=== PATIENT | female | born 1990 | race Caucasian/White ===

== ENCOUNTER 2018-03-10 14:19 | Emergency (ER) | payer OTHER ==
[2018-03-10] MEDS: IBUPROFEN 600 MG TAB PO (15:04)
[2018-03-10 15:13] LABS: ADD MAN DIFF? NO
[2018-03-10 15:15] LABS: WHITE BLOOD COUNT 7.2 10^3/ul (4.8-10.8)
[2018-03-10 15:15] LABS: BASOPHILS % 0.6 % (0.0-2.0); EOSINOPHILS # 0.1 10^3/ul (0.0-0.5); EOSINOPHILS % 1.9 % (0.0-7.0); HEMATOCRIT 38.5 % (37.0-47.0); HEMOGLOBIN 12.5 g/dl (12.0-16.0); LYMPHOCYTES # 2.2 10^3/ul (0.8-2.9); MEAN CORPUSCULAR HEMOGLOBIN 27.7 pg (29.0-33.0); MEAN CORPUSCULAR HGB CONC 32.5 g/dl (32.0-37.0); MEAN CORPUSCULAR VOLUME 85.4 fl (82.0-101.0); MEAN PLATELET VOLUME 9.7 fl (7.4-10.4); MONOCYTE # 0.5 10^3/ul (0.3-0.9); MONOCYTES % 6.7 % (0.0-11.0); NEUTROPHIL # 4.3 10^3/ul (1.6-7.5); NEUTROPHILS % 59.5 % (39.0-77.0); PLATELET COUNT 227 10^3/UL (140-415); RED BLOOD COUNT 4.51 10^6/ul (4.20-5.40); RED CELL DISTRIBUTION WIDTH 13.3 % (11.5-14.5)
[2018-03-10 15:41] LABS: ALANINE AMINOTRANSFERASE 20 IU/L (13-69); ALBUMIN 4.2 g/dl (3.3-4.9); ALBUMIN/GLOBULIN RATIO 1.44; ALKALINE PHOSPHATASE 77 IU/L (42-121); ANION GAP 14 (8-16); ASPARTATE AMINO TRANSFERASE 18 IU/L (15-46); BILIRUBIN,INDIRECT 0.3 mg/dl (0-1.1); BILIRUBIN,TOTAL 0.3 mg/dl (0.2-1.3); BLOOD UREA NITROGEN 11 mg/dl (7-20); CALCIUM 9.2 mg/dl (8.4-10.2); CARBON DIOXIDE 28 mmol/L (21-31); CHLORIDE 107 mmol/L (97-110); CREATININE 0.61 mg/dl (0.44-1.00); GLUCOSE 88 mg/dl (70-220); POTASSIUM 3.7 mmol/L (3.5-5.1); SODIUM 145 mmol/L (135-144); TOTAL PROTEIN 7.1 g/dl (6.1-8.1)
[2018-03-10 15:58] LABS: FREE THYROXINE INDEX (Calc) 3.47 ug/ml (0.65-3.89); T3 UPTAKE 33.4 % (23.5-40.5); T4 (THYROXINE) 10.4 ug/dl (5.5-11.0)
== END 2018-03-10 17:26 | disposition home or self-care (01) ==
LOC: FTE 14:19
DX: J02.9 Acute pharyngitis, unspecified (principal); E03.9 Hypothyroidism, unspecified; M54.2 Cervicalgia
CPT/HCPCS: 36415; 76536; 80053; 84436; 84443; 84479; 85025; 93005; 99285-25

== ENCOUNTER 2018-04-07 20:39 | Emergency (ER) | payer OTHER ==
[2018-04-07] MEDS: FAMOTIDINE 20 MG TAB PO (23:10)
== END 2018-04-07 23:39 | disposition home or self-care (01) ==
LOC: FTE 20:39
DX: O99.611 Diseases of the digestive system complicating pregnancy, first trimester (principal); K21.9 Gastro-esophageal reflux disease without esophagitis; R07.9 Chest pain, unspecified; O99.281 Endocrine, nutritional and metabolic diseases complicating pregnancy, first trimester; E03.9 Hypothyroidism, unspecified; Z3A.01 Less than 8 weeks gestation of pregnancy
CPT/HCPCS: 93005; 99283-25

== ENCOUNTER 2018-11-03 15:53 | Inpatient (IN) | payer OTHER ==
[2018-11-03 16:55] LABS: ALANINE AMINOTRANSFERASE 20 IU/L (13-69); ALBUMIN 3.4 g/dl (3.3-4.9); ALBUMIN/GLOBULIN RATIO 1.13; ALKALINE PHOSPHATASE 152 IU/L (42-121); ANION GAP 9 (5-13); ASPARTATE AMINO TRANSFERASE 23 IU/L (15-46); BILIRUBIN,INDIRECT 0.2 mg/dl (0-1.1); BILIRUBIN,TOTAL 0.2 mg/dl (0.2-1.3); BLOOD UREA NITROGEN 7 mg/dl (7-20); CARBON DIOXIDE 22 mmol/L (21-31); CHLORIDE 103 mmol/L (97-110); CREATININE 0.54 mg/dl (0.44-1.00); Estimated GFR > 60 mL/min (>60); GLUCOSE 118 mg/dl (70-220); POTASSIUM 3.7 mmol/L (3.5-5.1); SODIUM 134 mmol/L (135-144); TOTAL PROTEIN 6.4 g/dl (6.1-8.1)
[2018-11-03] MEDS ORDERED: TERBUTALINE 1 ML (17:46)
[2018-11-03] MEDS: TERBUTALINE 1 MG/ML INJ SC ×2 (17:55→20:57)
[2018-11-03] MEDS: LACTATED RINGER'S 1,000 ML IV ×3 (17:55→22:56)
[2018-11-03] MEDS: BETAMET NA PHOS/AC(6 MG/ML) 2 ML INJ SYG IM (18:42)
[2018-11-03 21:33] LABS: ADD UMIC YES; UR AMORPHOUS CRYSTAL FEW /HPF (NONE SEEN); UR ASCORBIC ACID NEGATIVE (NEGATIVE); UR BACTERIA MANY /HPF (NONE SEEN); UR BILIRUBIN (Dip) NEGATIVE (NEGATIVE); UR BLOOD (Dip) NEGATIVE (NEGATIVE); UR CLARITY CLOUDY (CLEAR); UR COLOR YELLOW (YELLOW); UR GLUCOSE (Dip) NEGATIVE (NEGATIVE); UR KETONES (Dip) NEGATIVE (NEGATIVE); UR LEUKOCYTE ESTERASE (Dip) 3+ Leu/ul (NEGATIVE); UR NITRITE (Dip) NEGATIVE (NEGATIVE); UR RBC 2 /HPF (0-5); UR SQUAMOUS EPITHELIAL CELL MODERATE /HPF (FEW); UR TOTAL PROTEIN (Dip) NEGATIVE (NEGATIVE); UR UROBILINOGEN (Dip) NEGATIVE (NEGATIVE); UR WBC 14 /HPF (0-5)
[2018-11-03] MEDS ORDERED: LACTATED RINGER'S 1,000 ML IV (22:27)
[2018-11-03] MEDS ORDERED: METHYLERGONOVINE 0.2 MG INJ IM (22:30)
[2018-11-03] MEDS ORDERED: BUTORPHANOL 2 MG INJ IV (22:30)
[2018-11-03] MEDS ORDERED: MISOPROSTOL 200 MCG TAB PR (22:30)
[2018-11-03] MEDS ORDERED: CARBOPROST 250 MCG INJ IM (22:30)
[2018-11-03] MEDS ORDERED: OXYTOCIN 30 UNITS/LR 500 ML IV ×3 (22:30)
[2018-11-03] MEDS ORDERED: IBUPROFEN 600 MG TAB PO (22:30)
[2018-11-03] MEDS ORDERED: LIDOCAINE 1% (MPF) 30 ML INJ INJ (22:30)
[2018-11-03] MEDS: NIFEdipine 10 MG CAP PO (23:59)
[2018-11-04 01:02] LABS: ADD MAN DIFF? NO
[2018-11-04 01:03] LABS: BASOPHILS % 0.2 % (0.0-2.0); HEMATOCRIT 33.5 % (37.0-47.0); HEMOGLOBIN 10.9 g/dl (12.0-16.0); LYMPHOCYTES # 0.7 10^3/ul (0.8-2.9); LYMPHOCYTES % 7.5 % (15.0-51.0); MEAN CORPUSCULAR HEMOGLOBIN 29.1 pg (29.0-33.0); MEAN CORPUSCULAR HGB CONC 32.5 g/dl (32.0-37.0); MEAN CORPUSCULAR VOLUME 89.3 fl (82.0-101.0); MEAN PLATELET VOLUME 10.6 fl (7.4-10.4); MONOCYTE # 0.1 10^3/ul (0.3-0.9); MONOCYTES % 1.1 % (0.0-11.0); NEUTROPHILS % 90.2 % (39.0-77.0); PLATELET COUNT 160 10^3/UL (140-415); RED BLOOD COUNT 3.75 10^6/ul (4.20-5.40); RED CELL DISTRIBUTION WIDTH 14.1 % (11.5-14.5)
[2018-11-04 01:03] LABS: WHITE BLOOD COUNT 8.9 10^3/ul (4.8-10.8)
[2018-11-04 01:34] LABS: INR 1.01; PROTIME 13.4 Sec (11.9-14.9)
[2018-11-04 01:35] LABS: PARTIAL THROMBOPLASTIN TIME 28.2 Sec (23.0-35.0)
[2018-11-04 03:13] LABS: HEPATITIS B SURFACE ANTIGEN NEGATIVE (NEGATIVE)
[2018-11-04] MEDS: NIFEdipine 10 MG CAP PO ×3 (06:13→18:10)
[2018-11-04] MEDS: LACTATED RINGER'S 1,000 ML IV ×2 (07:10→16:06)
[2018-11-04] MEDS: LEVOTHYROXINE 112 MCG TAB PO (09:45)
[2018-11-04] MEDS ORDERED: ACETAMINOPHEN 325 MG TAB (11:54)
[2018-11-04] MEDS: ACETAMINOPHEN 325 MG TAB PO (12:44)
[2018-11-04] MEDS: URSODIOL 300 MG CAP PO (16:06)
[2018-11-04] MEDS: BETAMET NA PHOS/AC(6 MG/ML) 2 ML INJ SYG IM (18:11)
[2018-11-04 19:55] LABS: RAPID PLASMA REAGIN NONREACTIVE (NR)
[2018-11-05] MEDS ORDERED: LEVOTHYROXINE 112 MCG TAB PO (06:00)
[2018-11-08 14:56] LABS: CHOLIC ACID 3.3 umol/L (< OR = 1.8); DEOXYCHOLIC ACID 1.1 umol/L (< OR = 2.4); TOTAL BILE ACIDS 8.4 umol/L (< OR = 6.8)
== END 2018-11-04 18:20 | disposition home or self-care (01) | DRG 833 ==
LOC: OBT 15:53 → L-D 15:55 → OBT 22:21 → L-D 22:21
DX: O47.1 False labor at or after 37 completed weeks of gestation (principal); Z3A.36 36 weeks gestation of pregnancy
CPT/HCPCS: 36415; 76818; 80053; 81001; 83789; 85025; 85610; 85730; 86592; 86850; 86900; 86901; 87086; 87340; 96360; 96361; 96372

== ENCOUNTER 2018-11-05 19:58 | Outpatient (CLI) | payer OTHER ==
[2018-11-05 20:28] LABS: ADD UMIC NO; UR ASCORBIC ACID NEGATIVE (NEGATIVE); UR BILIRUBIN (Dip) NEGATIVE (NEGATIVE); UR BLOOD (Dip) NEGATIVE (NEGATIVE); UR CLARITY CLEAR (CLEAR); UR COLOR YELLOW (YELLOW); UR GLUCOSE (Dip) NEGATIVE (NEGATIVE); UR KETONES (Dip) NEGATIVE (NEGATIVE); UR LEUKOCYTE ESTERASE (Dip) NEGATIVE Leu/ul (NEGATIVE); UR NITRITE (Dip) NEGATIVE (NEGATIVE); UR SPECIFIC GRAVITY (Dip) 1.011 (1.003-1.030); UR TOTAL PROTEIN (Dip) NEGATIVE (NEGATIVE); UR UROBILINOGEN (Dip) NEGATIVE (NEGATIVE)
[2018-11-05] MEDS: AL HYDROX/MG HYDROX/SIMETH 30 ML CUP PO (21:28)
== END 2018-11-05 21:43 | disposition home or self-care (01) ==
LOC: OBT 19:58 → L-D 19:58 → OBT 21:43
DX: O36.8130 Decreased fetal movements, third trimester, not applicable or unspecified (principal); Z3A.36 36 weeks gestation of pregnancy
CPT/HCPCS: 76818; 81003; 87086

== ENCOUNTER 2018-11-07 13:12 | Outpatient (CLI) | payer OTHER | END 2018-11-07 15:15 | disposition home or self-care (01) | LOC: OBT 13:12 → L-D 13:12 → OBT 15:15 | DX: O26.613 Liver and biliary tract disorders in pregnancy, third trimester (principal); K83.1 Obstruction of bile duct; O99.283 Endocrine, nutritional and metabolic diseases complicating pregnancy, third trimester; E03.9 Hypothyroidism, unspecified; Z3A.36 36 weeks gestation of pregnancy | CPT/HCPCS: 76818 ==

== ENCOUNTER 2018-11-10 12:49 | Outpatient (CLI) | payer OTHER | END 2018-11-10 13:41 | disposition home or self-care (01) | LOC: OBT 12:49 → L-D 12:49 → OBT 13:41 | DX: O26.613 Liver and biliary tract disorders in pregnancy, third trimester (principal); K83.1 Obstruction of bile duct; O36.8330 Maternal care for abnormalities of the fetal heart rate or rhythm, third trimester, not applicable or unspecified; Z3A.30 30 weeks gestation of pregnancy | CPT/HCPCS: 76818 ==

== ENCOUNTER 2018-11-12 13:14 | Inpatient (IN) | payer OTHER ==
[2018-11-12] MEDS ORDERED: CARBOPROST 250 MCG INJ IM (14:00)
[2018-11-12] MEDS ORDERED: BUTORPHANOL 2 MG INJ IV (14:00)
[2018-11-12] MEDS ORDERED: LIDOCAINE 1% (MPF) 30 ML INJ INJ (14:00)
[2018-11-12] MEDS ORDERED: IBUPROFEN 600 MG TAB PO (14:00)
[2018-11-12] MEDS ORDERED: METHYLERGONOVINE 0.2 MG INJ IM (14:00)
[2018-11-12] MEDS: MINERAL OIL LIGHT 10 ML VIAL TOP (14:00)
[2018-11-12] MEDS ORDERED: MISOPROSTOL 50 MCG CAPSULE VAG (14:00)
[2018-11-12] MEDS ORDERED: MISOPROSTOL 200 MCG TAB PR (14:00)
[2018-11-12] MEDS ORDERED: OXYTOCIN 30 UNITS/LR 500 ML IV (14:00)
[2018-11-12 14:13] LABS: ADD MAN DIFF? NO
[2018-11-12 14:16] LABS: WHITE BLOOD COUNT 7.4 10^3/ul (4.8-10.8)
[2018-11-12 14:16] LABS: BASOPHILS % 0.3 % (0.0-2.0); HEMATOCRIT 37.6 % (37.0-47.0); HEMOGLOBIN 12.6 g/dl (12.0-16.0); LYMPHOCYTES % 26.8 % (15.0-51.0); MEAN CORPUSCULAR HEMOGLOBIN 29.3 pg (29.0-33.0); MEAN CORPUSCULAR HGB CONC 33.5 g/dl (32.0-37.0); MEAN CORPUSCULAR VOLUME 87.4 fl (82.0-101.0); MEAN PLATELET VOLUME 10.7 fl (7.4-10.4); MONOCYTES % 8.7 % (0.0-11.0); NEUTROPHILS % 61.4 % (39.0-77.0); PLATELET COUNT 202 10^3/UL (140-415)
[2018-11-12 14:17] LABS: EOSINOPHILS # 0.1 10^3/ul (0.0-0.5); MONOCYTE # 0.6 10^3/ul (0.3-0.9); NEUTROPHIL # 4.5 10^3/ul (1.6-7.5); NUCLEATED RED BLOOD CELLS% 0.3 /100WBC (0.0-0.0)
[2018-11-12 14:34] LABS: INR 0.86; PROTIME 11.8 Sec (11.9-14.9); PT RATIO 0.9
[2018-11-12 14:35] LABS: PARTIAL THROMBOPLASTIN TIME 26.8 Sec (23.0-35.0)
[2018-11-12] MEDS: LACTATED RINGER'S 1,000 ML IV ×2 (14:43→21:35)
[2018-11-12] MEDS: AMPICILLIN 2 GM/NS (PMX) 100 ML IV (14:45)
[2018-11-12 15:13] LABS: HEPATITIS B SURFACE ANTIGEN NEGATIVE (NEGATIVE)
[2018-11-12 15:16] LABS: ADD UMIC YES; UR ASCORBIC ACID NEGATIVE (NEGATIVE); UR BACTERIA FEW /HPF (NONE SEEN); UR BILIRUBIN (Dip) NEGATIVE (NEGATIVE); UR BLOOD (Dip) NEGATIVE (NEGATIVE); UR CLARITY SLIGHTLY CLOUDY (CLEAR); UR COLOR YELLOW (YELLOW); UR GLUCOSE (Dip) NEGATIVE (NEGATIVE); UR KETONES (Dip) NEGATIVE (NEGATIVE); UR LEUKOCYTE ESTERASE (Dip) 2+ Leu/ul (NEGATIVE); UR NITRITE (Dip) NEGATIVE (NEGATIVE); UR RBC 2 /HPF (0-5); UR SPECIFIC GRAVITY (Dip) 1.008 (1.003-1.030); UR SQUAMOUS EPITHELIAL CELL MODERATE /HPF (FEW); UR TOTAL PROTEIN (Dip) NEGATIVE (NEGATIVE); UR UROBILINOGEN (Dip) NEGATIVE (NEGATIVE); UR WBC 2 /HPF (0-5)
[2018-11-12] MEDS: MISOPROSTOL 50 MCG CAPSULE PO ×2 (15:19→21:32)
[2018-11-12] MEDS ORDERED: MISOPROSTOL 50 MCG CAPSULE PO (17:00)
[2018-11-12] MEDS: AMPICILLIN 1 GM/NS (PMX) 50 ML IV ×2 (18:49→22:51)
[2018-11-12] MEDS: URSODIOL 300 MG CAP PO (21:31)
[2018-11-12 22:17] LABS: RAPID PLASMA REAGIN NONREACTIVE (NR)
[2018-11-13] MEDS: MISOPROSTOL 50 MCG CAPSULE PO ×4 (02:00→11:00)
[2018-11-13] MEDS: AMPICILLIN 1 GM/NS (PMX) 50 ML IV ×4 (02:28→15:34)
[2018-11-13] MEDS: LACTATED RINGER'S 1,000 ML IV ×3 (04:03→12:36)
[2018-11-13] MEDS: LEVOTHYROXINE 125 MCG TAB PO (08:50)
[2018-11-13] MEDS: URSODIOL 300 MG CAP PO ×2 (08:50→13:02)
[2018-11-13] MEDS ORDERED: DIPHENHYDRAMINE 50 MG INJ IV (09:00)
[2018-11-13] MEDS ORDERED: NALOXONE (0.4 MG/ML) INJ IV (09:00)
[2018-11-13] MEDS: FENTAnyl 2MCG/ML-ROPIV 0.2% 100 ML BAG EPI ×2 (11:38→17:58)
[2018-11-13] MEDS: OXYTOCIN 30 UNITS/LR 500 ML IV ×4 (15:00→20:35)
[2018-11-13] MEDS: ONDANSETRON 4 MG INJ IV ×2 (15:41→21:02)
[2018-11-13] MEDS: KETOROLAC 30 MG INJ IV (19:11)
[2018-11-13] MEDS ORDERED: ZOLPIDEM 5 MG TAB PO (22:00)
[2018-11-13] MEDS ORDERED: CARBOPROST 250 MCG INJ IM (22:00)
[2018-11-13] MEDS ORDERED: MISOPROSTOL 200 MCG TAB PR (22:00)
[2018-11-13] MEDS ORDERED: DIBUCAINE 1% 30 GM OINT TOP (22:00)
[2018-11-13] MEDS ORDERED: HYDROCODONE/APAP (5/325) TAB PO (22:00)
[2018-11-13] MEDS ORDERED: METHYLERGONOVINE 0.2 MG INJ IM (22:00)
[2018-11-13] MEDS ORDERED: OXYTOCIN 30 UNITS/LR 500 ML IV (22:00)
[2018-11-13] MEDS: BENZOCAINE 20% 56 ML SPRAY TOP (22:18)
[2018-11-13] MEDS: LANOLIN HPA 1 PKT TOP (22:18)
[2018-11-13] MEDS: WITCH HAZEL/GLYCERIN PAD PR (22:18)
[2018-11-13] MEDS: LACTATED RINGER'S 1,000 ML IV* (22:19)
[2018-11-13] MEDS: HYDROCODONE/APAP (5/325) TAB PO (22:44)
[2018-11-14] MEDS: IBUPROFEN 600 MG TAB PO ×4 (00:08→17:15)
[2018-11-14] MEDS: CEPHALEXIN 500 MG CAP PO ×4 (00:08→17:15)
[2018-11-14] MEDS: LEVOTHYROXINE 112 MCG TAB PO (05:54)
[2018-11-14] MEDS: LACTATED RINGER'S 1,000 ML IV* ×3 (05:55→21:55)
[2018-11-14 06:47] LABS: HEMATOCRIT 31.7 % (37.0-47.0); HEMOGLOBIN 10.2 g/dl (12.0-16.0); MEAN CORPUSCULAR HEMOGLOBIN 28.8 pg (29.0-33.0); MEAN CORPUSCULAR HGB CONC 32.2 g/dl (32.0-37.0); MEAN CORPUSCULAR VOLUME 89.5 fl (82.0-101.0); MEAN PLATELET VOLUME 10.9 fl (7.4-10.4); NUCLEATED RED BLOOD CELLS% 0.2 /100WBC (0.0-0.0); RED BLOOD COUNT 3.54 10^6/ul (4.20-5.40); RED CELL DISTRIBUTION WIDTH 13.9 % (11.5-14.5)
[2018-11-14 06:47] LABS: WHITE BLOOD COUNT 8.7 10^3/ul (4.8-10.8)
[2018-11-14 06:53] LABS: ADD MAN DIFF? YES; PLATELET COUNT 127 10^3/UL (140-415); POSITIVE DIFF @See below
[2018-11-14] MEDS: MAGNESIUM HYDROXIDE 30ML CUP PO ×2 (09:56→20:43)
[2018-11-14] MEDS: SENNA/DOCUSATE NA (8.6MG/50MG) TAB PO ×2 (09:57→20:43)
[2018-11-15] MEDS: IBUPROFEN 600 MG TAB PO ×3 (00:35→11:26)
[2018-11-15] MEDS: CEPHALEXIN 500 MG CAP PO ×3 (00:35→11:25)
[2018-11-15] MEDS: LACTATED RINGER'S 1,000 ML IV* (05:55)
[2018-11-15] MEDS: LEVOTHYROXINE 112 MCG TAB PO (06:01)
[2018-11-15] MEDS: MEASLES,MUMPS,RUBELLA VACCINE INJ SC* (08:11)
[2018-11-15] MEDS: VARICELLA VACCINE LIVE/PF 1,350 UNIT/0.5 ML ML SC* (08:11)
[2018-11-15] MEDS: DIPHTH/TET/ACEL PERTUSS (ADULT) 0.5 ML VIAL IM* (08:11)
[2018-11-15] MEDS: SENNA/DOCUSATE NA (8.6MG/50MG) TAB PO (09:12)
[2018-11-15] MEDS: MAGNESIUM HYDROXIDE 30ML CUP PO (09:12)
== END 2018-11-15 12:29 | disposition home or self-care (01) | DRG 805 ==
LOC: OBT 13:14 → L-D 13:14 → PP1 11-13 21:21 → OBT 13:14 → L-D 13:14
PROVIDERS: Obstetrics & Gynecology
PROC: 10E0XZZ Delivery of Products of Conception, External Approach (ICD-10-PCS; principal; 2018-11-13)
PROC: 10907ZC Drainage of Amniotic Fluid, Therapeutic from Products of Conception, Via Natural or Artificial Opening (ICD-10-PCS; 2018-11-13)
PROC: 10H07YZ Insertion of Other Device into Products of Conception, Via Natural or Artificial Opening (ICD-10-PCS; 2018-11-13)
PROC: 4A1H7CZ Monitoring of Products of Conception, Cardiac Rate, Via Natural or Artificial Opening (ICD-10-PCS; 2018-11-13)
DX: O26.62 Liver and biliary tract disorders in childbirth (principal); K83.1 Obstruction of bile duct; Z37.0 Single live birth; O69.81X0 Labor and delivery complicated by cord around neck, without compression, not applicable or unspecified; O99.824 Streptococcus B carrier state complicating childbirth; O99.284 Endocrine, nutritional and metabolic diseases complicating childbirth; E03.9 Hypothyroidism, unspecified; Z3A.37 37 weeks gestation of pregnancy
CPT/HCPCS: 62319; 76815; 81001; 84443; 85025; 85610; 85730; 86592; 86850; 86900; 86901; 87086; 87340; 90716